=== PATIENT | male | born 1950 | race Caucasian/White ===

== ENCOUNTER 2018-05-08 07:29 | Outpatient (CLI) | payer OTHER | END 2018-05-08 07:40 | disposition home or self-care (01) | LOC: LAB 07:29 | DX: I10 Essential (primary) hypertension (principal); E11.9 Type 2 diabetes mellitus without complications; E03.8 Other specified hypothyroidism; E78.2 Mixed hyperlipidemia; M81.0 Age-related osteoporosis without current pathological fracture ==

== ENCOUNTER 2018-08-20 10:28 | Outpatient (CLI) | payer OTHER | END 2018-08-20 10:34 | disposition home or self-care (01) | LOC: LAB 10:28 | DX: R41.2 Retrograde amnesia (principal) ==

== ENCOUNTER 2018-09-09 06:25 | Outpatient (CLI) | payer OTHER | END 2018-09-09 06:36 | disposition home or self-care (01) | LOC: LAB 06:25 | DX: Z01.811 Encounter for preprocedural respiratory examination (principal); D64.89 Other specified anemias; N36.8 Other specified disorders of urethra; E10.9 Type 1 diabetes mellitus without complications; D68.8 Other specified coagulation defects ==

== ENCOUNTER 2018-10-31 07:31 | Outpatient (CLI) | payer OTHER | END 2018-10-31 07:58 | disposition home or self-care (01) | LOC: LAB 07:31 | DX: D64.89 Other specified anemias (principal); N36.8 Other specified disorders of urethra; E10.9 Type 1 diabetes mellitus without complications; D68.8 Other specified coagulation defects ==

== ENCOUNTER → 2019-09-11 | Outpatient (CLI) | payer OTHER | END | disposition home or self-care (01) | LOC: TOM 15:38 | DX: G44.219 Episodic tension-type headache, not intractable (principal) ==

== ENCOUNTER 2020-01-30 13:04 | Outpatient (CLI) | payer OTHER | END 2020-01-30 13:09 | disposition home or self-care (01) | LOC: MRI 13:04 | PROVIDERS: ATTEND Neuromusculoskeletal Medicine & OMM | DX: M79.2 Neuralgia and neuritis, unspecified (principal) | CPT/HCPCS: 70551 ==

== ENCOUNTER 2020-03-15 07:10 | Outpatient (CLI) | payer OTHER ==
[2020-04-26] MEDS ORDERED: ROBAXIN-750750 MG PO (09:56)
== END 2020-03-15 07:28 | disposition home or self-care (01) ==
LOC: LAB 07:10
PROVIDERS: ATTEND Neuromusculoskeletal Medicine & OMM
DX: G62.89 Other specified polyneuropathies (principal); R20.2 Paresthesia of skin; E03.8 Other specified hypothyroidism; E11.9 Type 2 diabetes mellitus without complications

== ENCOUNTER 2020-03-26 13:33 | Outpatient (CLI) | payer OTHER ==
[2020-04-26] MEDS ORDERED: ROBAXIN-750750 MG PO (09:56)
== END 2020-03-26 13:38 | disposition home or self-care (01) ==
LOC: LAB 13:33
PROVIDERS: ATTEND Physical Medicine & Rehabilitation
DX: Z20.828 Contact with and (suspected) exposure to other viral communicable diseases (principal)

== ENCOUNTER → 2020-03-26 | Outpatient (CLI) | payer OTHER ==
[~2020-03-26] MED LIST: ROBAXIN-750750 MG PO
== END | disposition home or self-care (01) ==
LOC: RAD 12:14
PROVIDERS: ATTEND Physical Medicine & Rehabilitation
DX: M54.5 Low back pain (principal)

== ENCOUNTER 2020-05-12 10:41 | Outpatient (CLI) | payer OTHER | END 2020-05-12 12:53 | disposition home or self-care (01) | LOC: LAB 10:41 | PROVIDERS: ATTEND Physical Medicine & Rehabilitation | DX: Z20.828 Contact with and (suspected) exposure to other viral communicable diseases (principal); Z11.59 Encounter for screening for other viral diseases ==

== ENCOUNTER 2020-05-27 06:37 | Outpatient (CLI) | payer OTHER | END 2020-05-27 06:40 | disposition home or self-care (01) | LOC: LAB 06:37 | PROVIDERS: ATTEND Neuromusculoskeletal Medicine & OMM | DX: M45.9 Ankylosing spondylitis of unspecified sites in spine (principal); M79.2 Neuralgia and neuritis, unspecified ==

== ENCOUNTER 2020-06-21 07:13 | Outpatient (CLI) | payer OTHER | END 2020-06-21 07:20 | disposition home or self-care (01) | LOC: MRI 07:13 | PROVIDERS: ATTEND Neuromusculoskeletal Medicine & OMM | DX: M48.07 Spinal stenosis, lumbosacral region (principal); M51.26 Other intervertebral disc displacement, lumbar region | CPT/HCPCS: 72148 ==

== ENCOUNTER 2020-09-29 08:24 | Outpatient (CLI) | payer OTHER | END 2020-09-29 08:29 | disposition home or self-care (01) | LOC: LAB 08:24 | PROVIDERS: ATTEND Neuromusculoskeletal Medicine & OMM | DX: M72.9 Fibroblastic disorder, unspecified (principal); M54.5 Low back pain ==

== ENCOUNTER → 2021-02-16 07:28 | Outpatient (CLI) | payer OTHER | END | disposition home or self-care (01) | LOC: LAB 07:28 | PROVIDERS: ATTEND Internal Medicine Cardiovascular Disease | DX: I10 Essential (primary) hypertension (principal); E11.9 Type 2 diabetes mellitus without complications; E03.8 Other specified hypothyroidism; E78.2 Mixed hyperlipidemia; N40.0 Benign prostatic hyperplasia without lower urinary tract symptoms; Z12.11 Encounter for screening for malignant neoplasm of colon; E55.9 Vitamin D deficiency, unspecified; D64.0 Hereditary sideroblastic anemia ==

== ENCOUNTER → 2021-04-28 07:46 | Outpatient (CLI) | payer OTHER | END | disposition home or self-care (01) | LOC: LAB 07:46 | PROVIDERS: ATTEND Internal Medicine Cardiovascular Disease | DX: R05 Cough (principal); J11.1 Influenza due to unidentified influenza virus with other respiratory manifestations; D64.0 Hereditary sideroblastic anemia; R06.2 Wheezing ==

== ENCOUNTER → 2021-07-20 08:32 | Outpatient (CLI) | payer OTHER | END | disposition home or self-care (01) | LOC: LAB 08:32 | PROVIDERS: ATTEND Neuromusculoskeletal Medicine & OMM | DX: M51.36 Other intervertebral disc degeneration, lumbar region (principal) ==

== ENCOUNTER 2022-06-30 06:21 | Outpatient (CLI) | payer OTHER | END 2022-06-30 06:22 | disposition home or self-care (01) | LOC: LAB 06:21 | PROVIDERS: ATTEND Internal Medicine Cardiovascular Disease | DX: I10 Essential (primary) hypertension (principal); E11.9 Type 2 diabetes mellitus without complications; E03.9 Hypothyroidism, unspecified; E78.2 Mixed hyperlipidemia; N40.0 Benign prostatic hyperplasia without lower urinary tract symptoms; Z12.11 Encounter for screening for malignant neoplasm of colon; M19.90 Unspecified osteoarthritis, unspecified site; D84.9 Immunodeficiency, unspecified; E55.9 Vitamin D deficiency, unspecified; M10.9 Gout, unspecified ==

== ENCOUNTER 2022-07-18 11:13 | Outpatient (CLI) | payer OTHER | END 2022-07-18 11:35 | disposition home or self-care (01) | LOC: RAD 11:13 | PROVIDERS: ATTEND Internal Medicine Cardiovascular Disease | DX: M12.9 Arthropathy, unspecified (principal); Z12.11 Encounter for screening for malignant neoplasm of colon ==

== ENCOUNTER 2022-08-21 10:13 | Outpatient (CLI) | payer OTHER ==
[~2022-08-21 10:13] MED LIST changes: +DICLOFENAC POTA50 MG PO; +VOLTAREN ARTHRI20 GM TOP
== END 2022-08-21 10:38 | disposition home or self-care (01) ==
LOC: LAB 10:13
DX: B35.1 Tinea unguium (principal)

== ENCOUNTER → 2022-09-27 08:32 | Outpatient (CLI) | payer OTHER | END | disposition home or self-care (01) | LOC: LAB 08:32 | DX: B35.1 Tinea unguium (principal) ==

== ENCOUNTER 2022-12-05 09:11 | Outpatient (CLI) | payer OTHER | END 2022-12-05 09:12 | disposition home or self-care (01) | LOC: LAB 09:11 | PROVIDERS: ATTEND Internal Medicine Cardiovascular Disease | DX: I10 Essential (primary) hypertension (principal); E11.9 Type 2 diabetes mellitus without complications; E03.9 Hypothyroidism, unspecified; E78.2 Mixed hyperlipidemia; Z12.11 Encounter for screening for malignant neoplasm of colon ==

== ENCOUNTER 2022-12-26 08:43 | Outpatient (CLI) | payer OTHER | END 2022-12-26 15:11 | disposition home or self-care (01) | LOC: MRI 08:43 | PROVIDERS: ATTEND Internal Medicine Cardiovascular Disease | DX: M46.48 Discitis, unspecified, sacral and sacrococcygeal region (principal) | CPT/HCPCS: 72148 ==